=== PATIENT | female | born 2000 | race Caucasian/White ===

== ENCOUNTER 2022-05-12 11:42 | Outpatient (CLI) | payer OTHER, SELFPAY ==
[2022-05-12 20:53] LABS: Alanine Aminotransferase 20 U/L (6-35); Albumin Level 4.3 g/dL (3.5-5.1); Alkaline Phosphatase 54 U/L (38-126); Anion Gap 11 mmol/L (8-16); Aspartate Amino Transferase 36 U/L (14-36); Bilirubin,Total 0.5 mg/dL (0.2-1.3); Blood Urea Nitrogen 9 mg/dL (7-17); Carbon Dioxide 26 mmol/L (22-30); Chloride 103 mmol/L (98-107); Cholesterol 141 mg/dL (0-200); Estimated Glomerular Filt Rate > 60; Glucose 93 mg/dL (65-110); HDL Direct 45 mg/dL; Potassium 4.3 mmol/L (3.4-5.0); Sodium 140 mmol/L (137-145); Triglycerides 134 mg/dL (<150)
[2022-05-12 21:04] LABS: LDL Cholesterol Direct 66 mg/dL
[2022-05-12 21:19] LABS: Thyroid Stimulating Hormone 0.327 uIU/mL (0.465-4.680)
== END 2022-05-12 11:43 | disposition home or self-care (01) ==
PROVIDERS: PCP Family Medicine; Visit Provider Family Medicine
DX: Z00.00 Encounter for general adult medical examination without abnormal findings (principal); E04.9 Nontoxic goiter, unspecified
CPT/HCPCS: 36415; 80053; 80061; 84443

== ENCOUNTER 2022-09-26 09:51 | Outpatient (CLI) | payer OTHER, SELFPAY ==
[2022-09-26 20:11] LABS: Free T4 Free Thyroxine 1.14 ng/mL (0.78-2.19)
[2022-09-26 20:17] LABS: Thyroid Stimulating Hormone 0.558 uIU/mL (0.465-4.680); Total Triiodothyronine (T3) 1.75 NG/ML (0.97-1.69)
[2022-09-30 05:02] LABS: Thyroid Peroxidase Antibodies <1 IU/mL (<9)
== END 2022-09-26 09:52 | disposition home or self-care (01) ==
PROVIDERS: PCP Family Medicine; Visit Provider Physician Assistant
DX: R79.89 Other specified abnormal findings of blood chemistry (principal)
CPT/HCPCS: 36415; 84439; 84443; 84480; 86376; 86800

== ENCOUNTER 2022-10-10 08:17 | Outpatient (CLI) | payer OTHER, SELFPAY ==
--- NOTE | ~2022-10-10 | US_ITS ---
EXAMINATION: US thyroid DATE: 10/10/2022 08:47 INDICATION: Abnormal thyroid function tests. TECHNIQUE: Multiple ultrasound images of the thyroid were obtained. COMPARISON: None. FINDINGS: The right thyroid lobe measures 5.2 x 1.7 x 1.4 cm. The left thyroid lobe measures 5.0 x 1.1 x 1.7 c m. In the right thyroid lobe, there is a 2 mm nodule. IMPRESSION: 1. Small thyroid nodule, likely not clinically significant. No follow-up is needed. Reviewed, dictated and finalized at location A. ZAG STITCHER IMPRESSION: 1. Small thyroid nodule, likely not clinically significant. No follow-up is nee ded.
== END 2022-10-10 08:18 | disposition home or self-care (01) ==
LOC: ANHIMG 08:19
PROVIDERS: PCP Family Medicine; Visit Provider Physician Assistant
DX: R79.89 Other specified abnormal findings of blood chemistry (principal); E04.1 Nontoxic single thyroid nodule
CPT/HCPCS: 76536

== ENCOUNTER 2023-04-15 13:22 | Outpatient (CLI) | payer OTHER, SELFPAY ==
[2023-04-15 19:47] LABS: Thyroid Stimulating Hormone 0.787 uIU/mL (0.465-4.680)
== END 2023-04-15 13:23 | disposition home or self-care (01) ==
LOC: ANHGOSHLAB 13:24
PROVIDERS: PCP Family Medicine; Visit Provider Family Medicine
DX: E04.9 Nontoxic goiter, unspecified (principal)
CPT/HCPCS: 36415; 84443

== ENCOUNTER 2024-04-12 11:41 | Emergency (ER) | payer OTHER, SELFPAY ==
--- NOTE | ~2024-04-12 | XR_ITS ---
XR chest 2V 04/12/2024 12:00 Indication: Cough and fever Procedure: 2 view chest Comparison: No prior studies for comparison. Findings: Heart is right middle lobe pneumonia. Heart size normal. Left lung clear. No pleural effusi on or pneumothorax. Impression: 1: Right middle lobe pneumonia. Reviewed, dictated and finalized at location B. Impression: 1: Right middle lobe pneumonia.
--- NOTE | 2024-04-12 11:43 | ED.URI ---
HPI - URI/Sore Throat General Chief Complaint: Upper Respiratory Infection Stated Complaint: COUGH/FEVER/PNEUMONIA EXPOSURE Source: patient and RN notes reviewed Mode of arrival: ambulatory Limitations: no limitations History of Present Illness HPI Narrative: Patient is a 23-year-old female who presents to the [facility] with complaints of cough and fever. Patient states that she developed a frequent nonproductive cough 2 days ago that has been ongoing. She reports intermittent fevers, sweats, chills. Patient also reports mild sore throat that she believes is due to the cough. Patient arrived to the [facility] with a temperature today. She has not taken any ibuprofen or Tylenol prior to arrival. Patient reports positive pneumonia exposure. Related Data Allergies Allergy/AdvReac Type Severity Reaction Status Date / Time No Known Allergies Allergy Verified 04/12/24 11:52 Review of Systems Review of Systems: CONSTITUTIONAL: Reports fever, chills, and sweats. EYES: Denies visual changes, redness, or discharge. ENT: Denies otalgia. Reports sore throat. CARDIOVASCULAR: Denies chest pain, palpitations, or edema. RESPIRATORY: Denies dyspnea. Reports cough. GASTROINTESTINAL: Denies abdominal pain, nausea, vomiting, or diarrhea. GENITOURINARY: Denies dysuria or hematuria. SKIN: Denies rash or itching. MUSCULOSKELETAL: Denies back pain, joint pain, or myalgia. NEUROLOGIC: Denies headache, numbness, or weakness. Pertinent positives per HPI. PMFSH Social History Social History Smoking status: Never smoker Alcohol intake: never Lack of Transportation: No Lack of Food: Never True Current Housing: I Have Housing Concerned About Future Housing: No Difficulty Paying Gas/Electric Bills: No Difficulty Paying for Meds: No Currently Unemployed: No Education: Bachelor's Degree Difficulty w/ Childcare or Family Care: No Comments At the time of my signature, I reviewed and agree with the nursing past medical, surgical, social, and family history. There is no relevant family history pertinent to the patient complaint. Exam Narrative: GENERAL: This is a well-nourished, well-developed patient, in no apparent distress. HEAD: normocephalic, atraumatic. EYES: Sclera clear/white. Vision is grossly intact. EARS: External ears normaln. Hearing grossly intact. NOSE: External nose normal with no obvious nasal discharge, nares without redness, no rhinorrhea. THROAT: Mucous membranes moist, posterior pharynx clear. NECK: Neck supple, non-tender without lymphadenopathy, masses or thyromegaly. CARDIOVASCULAR: Regular rate and rhythm without murmurs, gallops, or rubs. RESPIRATORY: Clear to auscultation. Breath sounds equal bilaterally. No wheezes, rales, or rhonchi. GASTROINTESTINAL: Abdomen soft, non-tender, nondistended. Bowel sounds are active. No hepato-splenomegaly, or palpable masses. No guarding. SKIN: warm, intact with no suspicious lesions or rash, good texture and turgor. NEURO: awake, alert, and oriented to person, place and time. There were no obvious focal neurologic abnormalities. EXTREMITIES: No clubbing, cyanosis, or edema. No joint tenderness, effusion, or edema noted. BACK: Nontender without deformity or crepitance. No flank tenderness. Course Course Level of Care: Express Care Visit Vital Signs Vital signs: Vital Signs Temperature 101 F H 04/12/24 11:51 Pulse Rate 126 H 04/12/24 11:51 Respiratory Rate 18 04/12/24 11:51 Blood Pressure 111/79 04/12/24 11:51 Pulse Oximetry 98 04/12/24 11:51 Temperature 101 F H 04/12/24 11:53 Pulse Rate 126 H 04/12/24 11:53 Respiratory Rate 18 04/12/24 11:53 Blood Pressure 111/79 04/12/24 11:53 Pulse Oximetry 98 04/12/24 11:53 Reviewed MDM - URI/Sore Throat MDM Narrative Medical decision making narrative: Take antibiotic as prescribed. Also, recommend symptomatic
[2024-04-12 11:51] VITALS: BP 111/79; PULSE 126; RESP 18; TEMP 38.3; O2SAT 98
[2024-04-12 11:53] VITALS: BP 111/79; PULSE 126; RESP 18; TEMP 38.3; O2SAT 98
== END 2024-04-12 12:19 | disposition home or self-care (01) ==
PROVIDERS: Emergency Provider Nurse Practitioner; PCP Family Medicine
DX: J18.1 Lobar pneumonia, unspecified organism (principal); Z20.822 Contact with and (suspected) exposure to COVID-19
CPT/HCPCS: 71046; 87426; 99213; G0463